=== PATIENT | female | born 1985 | race Caucasian/White ===

== ENCOUNTER 2017-06-17 06:38 | Inpatient (IN) | payer OTHER ==
[2017-06-17] MEDS ORDERED: Oxytocin/Lactated Ringers 10 UNIT/1,000 ML BAG IV ONE (06:51)
[2017-06-17] MEDS ORDERED: Lactated Ringers 1,000 ML ONE (06:52)
[2017-06-17] MEDS ORDERED: Sodium Chloride 0.9% 10 ML Syringe FLUSH PRN (07:05)
[2017-06-17] MEDS ORDERED: Ondansetron 4 MG/2 ML SDV IVPUSH PRN (07:05)
[2017-06-17] MEDS ORDERED: Nalbuphine 20 MG/1 ML Amp IVPUSH PRN (07:05)
[2017-06-17] MEDS ORDERED: Lactated Ringers 1,000 ML IV SCH (07:15)
--- NOTE | 2017-06-17 07:17 | PCM.LDHP ---
L&D History of Present Illness - General Date of Service: 06/17/17 Admit Problem/Dx: Patient Status Order with Admit Dx/Problem 06/17/17 07:05 Patient Status [ADT] Routine Admission Diagnosis/Problem Admission Diagnosis/Problem Normal 06/17/17 07:07 Italia is a-year-old 4 para 3003 white female is admitted this a.m. in active labor with cervical dilation 6-7 cm, 100% effaced, bulging bag barth. She is hermila every 3 minutes and is in moderate to severe discomfort. heart rate is normal with reactive strip. 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 She is 41-1/7 weeks gestational age based upon an ROLF of 06/09/2007 which was set by a an early ultrasound done on 01/01/2017. This supported by 2 other ultrasounds done 01/01/2017 and 01/20/2017. Her course has been relatively unremarkable. First visit occurred on 01/01/2017 at 17 weeks and 2 days. She was seen on a regular basis throughout the . Her weight gain was from a pre- weight of 157 who weight at last visit of 181 for a 24 pound weight gain. Her vital signs remained stable throughout the course and her fundal height growth was appropriate. Patient had conjunctivitis during which was treated. She declined genetic evaluation. Her [place] depression screening score was 3 on 03/20/2017. She is group B strep negative. She has a history of macrosomic baby with last delivering an 8 lbs. 14 oz. without problems. The flu shot was given on 02/26/2017. She's had some hemorrhoidal problems. She is Rh- and did receive RhoGAM on 03/20/2017. T Dap was done on . Patient plans to breast-feed past obstetric history includes 3 normal spontaneous vaginal deliveries on 05/21/2011, 07/15/2012, 01/18/2016. All at 40-42 weeks gestational age. There weights were 8 lbs. 6 oz., 8 pounds 12, 8 lbs. 14 oz. They were female, male and male respectively.. Laboratory testing and shows her blood to be a negative with negative screen. RhoGAM given in second trimester. First hemoglobin is 10.8 and platelets were 283,000. She is rubella immune. RPR is nonreactive. Hepatitis B surface antigen and HIV assays were negative. She declined chlamydia and gonorrhea testing. Her second trimester testing was not performed. She is A- and had RhoGAM during the course of her . Her group B strep is negative. Allergies: None Medications: tablets daily 2. Iron supplement 325 mg 2 times per day. Past medical history: 1. Vaginal delivery 3 2. Abnormal Paps-2005 Past surgical history: 1 Breast augmentation 2014. 2. Cervical cryotherapy 2005 3. Hydrodistention of the bladder 2004 Family history: Niece with ventricular septal defect. Mother had a stillborn. Parents are alive and well except dad has hypertension. One brother and 2 sisters are alive and well. Maternal grandmother alive and well. Maternal grandfather secondary to stroke. Paternal grandmother secondary to lung cancerwas a smoker. Paternal grandfather secondary to lung cancer in his 40s. There are no bleeding, clotting, anesthesia or -related problems in the family. Social history: Patient is , is Zhou. She does not use any significant use of alcohol, drugs or tobacco. She does not work outside the home. Review of systems: Skin: Negative Cardiovascular: No chest pain or exercise intolerance Respiratory: No infectious symptoms or shortness of breath Breasts: Negative. Patient plans to nurse. GI: Negative : Contractions since this . Changes associated with including appropriate growth of fundal height. Musculoskeletal: Negative with exception of some lower extremity edema on occasion Neurological: Negative Physical exam: On last evaluation clinic patient was a well developed well- nourished pleasant female in no acute distress. Skin is warm dry without lesions. HEENT, neck and back within normal limits. Lungs are clear with good breath sounds in all lung grijalva. Cardiovascular exam shows regular without murmurs. Breast exam is deferred. Abdomen is protuberant with last fundal height on last evaluation in clinic at 37+ centimeters. Baby in vertex presentation. Cervix is 8-9 cm on my evaluation, 100% effaced, bulging bag barth which is ruptured with resultant clear amniotic fluid. Extremities and neurological exam grossly within normal limits. 06/17/17 07:18 - Related Data Allergies/Adverse Reactions: Allergies Allergy/AdvReac Type Severity Reaction Status Date / Time No Known Allergies Allergy Verified 04/26/16 00:50 Home Medications: Home Meds Docosahexanoic Acid [ Dha] 1 tab PO DAILY 05/29/15 [History] Ibuprofen [IJD: Ibuprofen] 600 mg PO Q4H PRN #30 tablet 01/19/16 [Rx] Past Medical History HEENT History: Reports: Sinusitis Cardiovascular History: Reports: None Respiratory History: Reports: None Gastrointestinal History: Reports: None Genitourinary History: Reports: None MANNEQUIN MOLD MAKER History: Reports: Musculoskeletal History: Reports: Back Pain, Chronic Neurological History: Reports: None Psychiatric History: Reports: Anxiety Endocrine/Metabolic History: Reports: None - Infectious Disease History Infectious Disease History: Reports: Chicken Pox Social & Family History - Family History Family Medical History: Noncontributory - Tobacco Use Smoking Status *Q: Former Smoker Years of Tobacco use: 7 Packs/Tins Daily: 0.2 Used Tobacco, but Quit: Yes Month Tobacco Last Used: 5 Second Hand Smoke Exposure: No - Caffeine Use Caffeine Use: Reports: Coffee - Recreational Drug Use Recreational Drug Use: No H&P Review of Systems - Review of Systems: Review Of Systems: See Below L&D Exam - Exam Exam: See Below - Vital Signs Vital Signs: Last Vital Signs Temp 36.5 C 06/17/17 06:48 Pulse 90 06/17/17 06:48 Resp 18 06/17/17 06:48 BP 117/83 06/17/17 06:48 Pulse Ox Problem List Initiated/Reviewed/Updated: Yes Orders Last 24hrs: Active Orders 24 hr Category Date Time Status Patient Status [ADT] Routine ADT 06/17/17 07:05 Ordered Activity as Tolerated [RC] PFP Care 06/17/17 07:05 Ordered Communication Order [RC] ASDIRECTED Care 06/17/17 07:05 Ordered Heart Tones [RC] ASDIRECTED Care 06/17/17 07:06 Ordered Notify Provider [RC] PFP Care 06/17/17 07:05 Ordered Notify Provider [RC] PRN Care 06/17/17 07:05 Ordered Peripheral IV Care [RC] . DIRECTED Care 06/17/17 07:06 Ordered Vital Signs [RC] PER UNIT ROUTINE Care 06/17/17 07:05 Ordered Regular Diet [DIET] Diet 06/17/17 Breakfast Ordered Lactated Ringers [Ringers, Lactated] 1,000 ml Med 06/17/17 07:15 Ordered IV ASDIRECTED Nalbuphine [Nubain] Med 06/17/17 07:05 Ordered 10 mg IVPUSH Q2H PRN Ondansetron [Zofran] Med 06/17/17 07:05 Ordered 4 mg IVPUSH Q4H PRN Sodium Chloride 0.9% [Saline Flush] Med 06/17/17 07:05 Ordered 10 ml FLUSH ASDIRECTED PRN Electronic Heart Tones Ext w TOCO [WOMSER] Oth 06/17/17 07:05 Ordered Routine Electronic Heart Tones Internal [WOMSER] Per Unit Oth 06/17/17 07:05 Ordered Routine Peripheral IV Insertion Adult [OM.PC] Routine Ot 06/17/17 07:05 Ordered Resuscitation Status Routine Resus Stat 06/17/17 07:05 Ordered Assessment/Plan Comment:: Assessment: 1. 41-1/7 week intrauterine , active labor with advanced cervical dilation 2. Risk factors are minimal for the but to include history of macrosomic baby8 lbs. 14 oz. 3. Rubella immune 4. Patient plans to breast-feed Plan: 1. Anticipate normal spontaneous vaginal delivery 2. No pain control per patient desire 3. Support nursing decision.
--- NOTE | 2017-06-17 09:51 | PCM.SN ---
- Free Text/Narrative Note: Delivery note: Kodi is a 31-year-old 4 now para 4004 white female who is admitted at 41-1/7 weeks gestational age with an ROLF of 06/09/2017. She began contractions at 0100 hrs. on 06/17/2017. She rapidly progressed and was admitted at approximate 0630 hrs. to labor and delivery. She is found be 6 cm dilated, 95 % effaced, bulging bag barth, vertex presentation, anterior, very soft, -2 station. When I arrived patient was found to be 8-9 cm, bulging bag barth, 0 station. Artificial rupture membranes resulted in clear amniotic fluid. Patient very quickly went on to complete dilation. She had no pain medication during labor. She delivered a viable, lee, female infant weighing 3628 g (8 lbs. 0 oz.), had Apgars of 8 and 9 and delivered in occiput anterior position. The perineum remained intact and no sutures were necessary. Baby was placed on mom' s abdomen and cord was clamped 2 and then was cut by the baby's father nature. Cord bloods obtained. Pitocin was administered IV due to increased uterine tone and decrease likelihood of uterine bleeding. The placenta delivered in a Diallo presentation at 0731 hrs., appeared intact and complete and was discarded per patient desire. The umbilical cord had 3 vessels. Patient plans to breast-feed. Condition: Good. Estimated blood loss 100 mL.
[2017-06-17] MEDS ORDERED: Benzocaine/Menthol 20%-0.5% Spray 56 GM Canister TOP PRN (10:35)
[2017-06-17] MEDS ORDERED: Witch Hazel Medicated Pads 100/Jar TOP PRN (10:35)
[2017-06-17] MEDS ORDERED: Ibuprofen 600 MG Tab PO PRN (10:35)
[2017-06-17] MEDS ORDERED: Lanolin 100% Cream 7 GM Tube TOP PRN (10:35)
[2017-06-17] MEDS ORDERED: Docusate Sodium 100 MG Cap PO PRN (10:35)
[2017-06-17] MEDS ORDERED: Acetaminophen 325 MG Tab PO PRN (10:35)
[2017-06-18 03:38] VITALS: BP 110/69
--- NOTE | 2017-06-18 05:42 | PCM.DCSUM1 ---
Discharge Summary - Hospital Course Free Text/Narrative:: Kodi is a 31-year-old 4 now para 4004 white female who is admitted at 41-1/7 weeks gestational age with an ROLF of 06/09/2017. She began contractions at 0100 hrs. on 06/17/2017. She rapidly progressed and was admitted at approximate 0630 hrs. to labor and delivery. She is found be 6 cm dilated, 95% effaced, bulging bag barth, vertex presentation, anterior, very soft, -2 station. When I arrived patient was found to be 8-9 cm, bulging bag barth, 0 station. Artificial rupture membranes resulted in clear amniotic fluid. Patient very quickly went on to complete dilation. She had no pain medication during labor. She delivered a viable, lee, female infant weighing 3628 g (8 lbs. 0 oz.) , had Apgars of 8 and 9 and delivered in occiput anterior position. The perineum remained intact and no sutures were necessary. Baby was placed on mom' s abdomen and cord was clamped 2 and then was cut by the baby's father nature. Cord bloods obtained. Pitocin was administered IV due to increased uterine tone and decrease likelihood of uterine bleeding. The placenta delivered in a Diallo presentation at 0731 hrs., appeared intact and complete and was discarded per patient desire. The umbilical cord had 3 vessels. Patient plans to breast-feed. Condition: Good. Estimated blood loss 100 mL. patient is doing very well. Her vital signs are stable. She is afebrile. She is ambulating well, nursing without problems and is voiding without concerns. Patient is desiring to go home. - Discharge Data Discharge Date: 06/18/17 Discharge Disposition: Home, Self-Care 01 Condition: Good - Patient Instructions Diet: Regular Diet as Tolerated (Nursing diet with increased calories and calcium as recommended.) Activity: As Tolerated (No intercourse or tampons until bleeding resolves) Driving: May Drive Today Showering/Bathing: May Shower (May take a bath) Notify Provider of: Fever, Increased Pain, Swelling and Redness, Nausea and/or Vomiting - Discharge Plan Home Medications: Home Meds Docosahexanoic Acid [ Dha] 1 tab PO DAILY 05/29/15 [History] Ibuprofen [IJD: Ibuprofen] 600 mg PO Q4H PRN #30 tablet 01/19/16 [Rx] Acetaminophen [Tylenol] 650 mg PO Q4H PRN tablet 06/18/17 [Rx] Ibuprofen [IJD: Ibuprofen] 600 mg PO Q4H PRN tablet 06/18/17 [Rx] Referrals: Balwinder Dc MD [Primary Care Provider] - (Return to clinicDr[facility]2 weeks.) - Discharge Summary/Plan Comment DC Time >30 min.: No Discharge Summary/Plan Comment: Discharge instructions: 1. Discharge home 2. Diet, activity and follow-up discussed with patient. Recommend nursing diet with increased calories and calcium. 3. Precautions given concern increased pain, bleeding, temperature, signs/ symptoms of DVT/PE. 4. Medications per home medication was printed, discussed with and given to the patient. 5. Return to clinic-Dr. Dc[facility] in 2 weeks. Diagnosis: Term -delivered Condition: Good - Patient Data Vitals - Most Recent: Last Vital Signs Temp 36.4 C 06/18/17 03:16 Pulse 80 06/18/17 03:16 Resp 17 06/18/17 03:16 BP 110/69 06/18/17 03:16 Pulse Ox 97 06/18/17 03:16 Weight - Most Recent: 82.1 kg I&O - Last 24 hours: Intake & Output 06/17/17 06/17/17 06/18/17 14:59 22:59 06:59 Intake Total 242 Balance 242 Lab Results - Last 24 hrs: Laboratory Results - last 24 hr 06/17/17 Range/Units 15:05 Blood Type A NEGATIVE Gel Antibody Screen Positive Screen 1 ros/5 flds - neg RhIG Candidate? Yes Rhogam Indicated Yes, baby rh pos H Med Orders - Current: Current Medications Acetaminophen (Tylenol) 650 mg PO Q4H PRN PRN Reason: mild pain or fever Benzocaine/Menthol (Dermoplast Pain Relief Badger) 0 gm TOP ASDIRECTED PRN PRN Reason: Perineal Comfort Measure Docusate Sodium (Colace) 100 mg PO BID PRN PRN Reason: Constipation Emollient Ointment (Lansinoh Hpa) 0 gm TOP ASDIRECTED PRN PRN Reason: Sore Nipples Ibuprofen (Motrin) 600 mg PO Q4H PRN PRN Reason: Mild pain or fever Last Admin: 06/17/17 19:52 Dose: 600 mg Prenat Multivit/Tift/Iron/Folic Ac ( Plus Iron) 1 each PO DAILY [facility] [place] (Tucks) 1 pad TOP ASDIRECTED PRN PRN Reason: Hemorrhoid pain Discontinued Medications Oxytocin/Lactated Ringer's (Pitocin In Lr 10 Units/1,000 Ml) Confirm Administered Dose 10 unit in 1,000 mls @ as directed IV .STK-MED ONE Stop: 06/17/17 06:52 Lactated Ringer's (Ringers, Lactated) Confirm Administered Dose 1,000 mls @ as directed .ROUTE .STK-MED ONE Stop: 06/17/17 06:53 Lactated Ringer's (Ringers, Lactated) 1,000 mls @ 100 mls/hr IV ASDIRECTED [facility] Nalbuphine HCl (Nubain) 10 mg IVPUSH Q2H PRN PRN Reason: Pain (moderate 4-6) Ondansetron HCl (Zofran) 4 mg IVPUSH Q4H PRN PRN Reason: Nausea/Vomiting Sodium Chloride (Saline Flush) 10 ml FLUSH ASDIRECTED PRN PRN Reason: Keep Vein Open *Q Meaningful Use (DIS) - VTE *Q VTE Criteria *Q: - Stroke *Q Stroke Criteria *Q: - AMI *Q AMI Criteria *Q:
[2017-06-18] MEDS ORDERED: Prenatal Multivitamin with Calcium/Folic Acid/Iron Tab PO SCH (09:00)
== END 2017-06-18 10:48 | disposition home or self-care (01) | DRG 775 ==
LOC: JD.OB 06:38 → OBSVTOIN 07:28 → JD.OB 07:28
PROVIDERS: ADMIT Obstetrics & Gynecology; ATTEND Obstetrics & Gynecology
PROC: 10E0XZZ Delivery of Products of Conception, External Approach (ICD-10-PCS; principal; 2017-06-17)
PROC: 10907ZC Drainage of Amniotic Fluid, Therapeutic from Products of Conception, Via Natural or Artificial Opening (ICD-10-PCS; 2017-06-17)
DX: O48.0 Post-term pregnancy (principal); Z3A.41 41 weeks gestation of pregnancy; Z87.891 Personal history of nicotine dependence
CPT/HCPCS: 36415; 59409; 85027; A9270-GY; J2790